=== PATIENT | female | born 1980 | race Caucasian/White ===

== ENCOUNTER 2017-01-19 04:31 | Emergency (ER) | payer BC ==
[~2017-01-19] VITALS: Ht 167.6 cm; Wt 66.0 kg
[2017-01-19] MEDS ORDERED: METHYLPREDNISOLONE SOD SUCC 125 MG/2 ML VIAL IV STA (04:41)
[2017-01-19] MEDS ORDERED: ALBUTEROL (0.083%) 2.5MG/3ML NEB HHN STA (04:41)
[2017-01-19] MEDS ORDERED: IPRATROPIUM BROMIDE (0.02%) 0.5MG/2.5ML NEB HHN STA (04:41)
[2017-01-19] MEDS ORDERED: MAGNESIUM 2 G PREMIX 50 ML IV STA (04:41)
[2017-01-19] MEDS ORDERED: ALBUTEROL (0.5%) 2.5MG/0.5ML NEB HHN ONE (04:53)
[2017-01-19 06:10] VITALS: BP 120/55
== END 2017-01-19 06:26 | disposition home or self-care (01) ==
LOC: ER 04:31
DX: J45.901 Unspecified asthma with (acute) exacerbation (principal)
CPT/HCPCS: 94640; 96365; 96375; 99284; J2930; J3475; J7611; Z7610

== ENCOUNTER 2017-05-06 03:53 | Emergency (ER) | payer BC ==
[~2017-05-06] VITALS: Ht 167.6 cm; Wt 68.9 kg
[2017-05-06] MEDS ORDERED: AZITHROMYCIN 500 MG TABLET PO ONE (04:30)
[2017-05-06] MEDS ORDERED: METHYLPREDNISOLONE SOD SUCC 125 MG/2 ML VIAL IM ONE (04:30)
[2017-05-06 04:48] VITALS: BP 110/76
== END 2017-05-06 05:29 | disposition home or self-care (01) ==
LOC: ER 04:11
DX: J45.909 Unspecified asthma, uncomplicated (principal); R05 Cough
CPT/HCPCS: 96372; 99283; J2930

== ENCOUNTER 2017-12-29 22:23 | Emergency (ER) | payer BC ==
[~2017-12-29] VITALS: Ht 167.6 cm; Wt 70.2 kg
[2017-12-29] MEDS ORDERED: ALBUTEROL (0.083%) 2.5MG/3ML NEB HHN STA (22:53)
[2017-12-29] MEDS ORDERED: METHYLPREDNISOLONE SOD SUCC 125 MG/2 ML VIAL IV STA (22:53)
[2017-12-29] MEDS ORDERED: IPRATROPIUM BROMIDE (0.02%) 0.5MG/2.5ML NEB HHN STA (22:53)
[2017-12-29] MEDS ORDERED: MAGNESIUM 2 G PREMIX 50 ML IV ONE (23:00)
[2017-12-29 23:27] VITALS: BP 132/62
[2017-12-30] MEDS ORDERED: IPRATROPIUM BROMIDE (0.02%) 0.5MG/2.5ML NEB HHN STA (00:03)
[2017-12-30] MEDS ORDERED: ALBUTEROL (0.083%) 2.5MG/3ML NEB HHN STA (00:03)
== END 2017-12-30 01:24 | disposition home or self-care (01) ==
LOC: ER 22:23
DX: J45.901 Unspecified asthma with (acute) exacerbation (principal); R03.0 Elevated blood-pressure reading, without diagnosis of hypertension
CPT/HCPCS: 71045; 81025; 94640; 96365; 96366; 96375; 99285; J2930; J3475; J7611